=== PATIENT | male | born 1935 | race African-American/Black ===

== ENCOUNTER 2020-07-24 23:37 | Observation (INO) ==
[2020-07-25] MEDS ORDERED: ALBUTEROL/IPRATROPIUM 3 ML NEB RESP TX PRN (03:58)
[2020-07-25] MEDS ORDERED: MORPHINE 4 MG/1 ML VIAL IV PRN (03:58)
[2020-07-25] MEDS ORDERED: GLUCAGON 1 MG VIAL IM PRN (03:58)
[2020-07-25] MEDS ORDERED: ONDANSETRON 4 MG/2 ML VIAL IV PRN (03:58)
[2020-07-25] MEDS ORDERED: ACETAMINOPHEN 325 MG TABLET PO PRN (03:58)
[2020-07-25] MEDS ORDERED: hydrALAZINE 20 MG/1 ML VIAL IV PRN (03:58)
[2020-07-25] MEDS ORDERED: DEXTROSE 50% 25 GM/50 ML VIAL IV PRN (03:58)
[2020-07-25] MEDS ORDERED: DOCUSATE SODIUM 100 MG CAPSULE PO PRN (03:58)
[2020-07-25 04:33] LABS: Basophils % 0.1 % (0.0-0.8); Eosinophils % 0.1 % (0.00-10.9); Hematocrit 53.6 VOL% (42.0-52.0); Hemoglobin 18.2 GM/DL (14.0-18.0); Immature Granulocytes % 0.1 %; Immature Granulocytes Absolute 0.01 #; Lymphocytes # 0.9 10*3/uL (1.4-4.0); Lymphocytes % 11.8 % (21.2-54.2); Mean Corpuscular Volume 95.4 FL (87-102); Mean Platelet Volume 10.4 FL (9.6-12.0); Monocytes % 1.1 % (1.7-12.7); Neutrophils % 86.8 % (38.7-73.9); Platelet Count 104 T/CUMM (130-400); Red Blood Count 5.62 MC/CUMM (3.8-5.5); Red Cell Distribution Width 12.3 % (9.3-17.3); White Blood Count 7.4 T/CUMM (4-12)
[2020-07-25 04:57] LABS: Albumin 2.9 G/DL (3.4-5.0); Bilirubin,Total 1.3 MG/DL (0.2-1.0); Calcium 8.7 MG/DL (8.5-10.1); Osmolality,Calculated 286.1 MOS/KG (273-304); Potassium 4.2 MMOL/L (3.5-5.1); Total Protein 6.6 G/DL (6.4-8.3)
[2020-07-25] MEDS ORDERED: ALBUTEROL 2.5 MG/3 ML NEB RESP TX PRN (05:21)
[2020-07-25 05:29] LABS: Platelet Estimate Adequate
[2020-07-25 05:30] LABS: Macrocytosis Slight
[2020-07-25] MEDS: methylPREDNISolone SOD SUC 40 MG/1 ML VIAL IV SCH ×3 (06:21→21:54)
[2020-07-25] MEDS: ALBUTEROL/IPRATROPIUM 3 ML NEB RESP TX SCH ×3 (07:20→19:25)
[2020-07-25] MEDS: ENOXAPARIN 100 MG/ML SYRINGE SUBCUT SCH ×2 (08:45→21:57)
[2020-07-25] MEDS: LACTATED RINGERS 1,000 ML IV SCH ×2 (12:38→16:14)
[2020-07-25] MEDS: SILVER SULFADIAZINE 1% CREAM 25 GM TUBE TOP SCH (15:44)
[2020-07-25] MEDS: carvediloL 12.5 MG TABLET PO SCH (21:53)
[2020-07-25] MEDS ORDERED: ATORVASTATIN 40 MG TABLET PO SCH (22:00)
[2020-07-26] MEDS: ALBUTEROL/IPRATROPIUM 3 ML NEB RESP TX SCH ×3 (00:29→13:14)
[2020-07-26] MEDS: methylPREDNISolone SOD SUC 40 MG/1 ML VIAL IV SCH ×2 (05:38→12:04)
[2020-07-26 06:26] LABS: Basophils % 0.2 % (0.0-0.8); Hemoglobin 16.9 GM/DL (14.0-18.0); Immature Granulocytes % 0.6 %; Immature Granulocytes Absolute 0.13 #; Lymphocytes # 1.6 10*3/uL (1.4-4.0); Lymphocytes % 7.7 % (21.2-54.2); Mean Corpuscular HGB Conc 33.1 GM/DL (32-36); Mean Platelet Volume 10.8 FL (9.6-12.0); Monocytes % 2.9 % (1.7-12.7); Neutrophils % 88.6 % (38.7-73.9); Platelet Count 119 T/CUMM (130-400); Red Blood Count 5.26 MC/CUMM (3.8-5.5); Red Cell Distribution Width 12.6 % (9.3-17.3)
[2020-07-26 06:28] LABS: White Blood Count 20.5 T/CUMM (4-12)
[2020-07-26 06:52] LABS: Albumin 2.8 G/DL (3.4-5.0); Bilirubin,Total 0.8 MG/DL (0.2-1.0); Calcium 8.5 MG/DL (8.5-10.1); Osmolality,Calculated 283.5 MOS/KG (273-304); Potassium 4.3 MMOL/L (3.5-5.1); Total Protein 6.3 G/DL (6.4-8.3)
[2020-07-26] MEDS: carvediloL 12.5 MG TABLET PO SCH (07:05)
[2020-07-26] MEDS: LACTATED RINGERS 1,000 ML IV SCH ×2 (07:34→12:40)
[2020-07-26 08:28] LABS: Band Neutrophils 1 % (0-10); Lymphocytes 9 % (20-55); Platelet Estimate Decreased; Segmented Neutrophils 85 % (50-85); Total Cells Counted 100
[2020-07-26] MEDS: SILVER SULFADIAZINE 1% CREAM 25 GM TUBE TOP SCH (08:55)
[2020-07-26] MEDS ORDERED: NINTEDANIB 100 MG PO SCH (09:00)
[2020-07-26] MEDS ORDERED: amLODIPine 2.5 MG TABLET PO SCH (09:00)
[2020-07-26] MEDS ORDERED: AZITHROMYCIN 250 MG TABLET PO SCH (09:00)
[2020-07-26] MEDS ORDERED: MONTELUKAST 10 MG TABLET PO SCH (09:00)
[2020-07-26] MEDS ORDERED: ASPIRIN EC 81 MG TABLET PO SCH (09:00)
[2020-07-26 12:22] VITALS: BP 124/68
== END 2020-07-26 14:58 | disposition home health service (06) ==
LOC: N.TELEN → SUATTDRO 07-25 01:01
PROVIDERS: ADMIT Internal Medicine; ATTEND Internal Medicine